=== PATIENT | male | born 1960 | race Caucasian/White ===

== ENCOUNTER 2017-05-11 03:28 | Emergency (ER) | payer SELFPAY ==
[~2017-05-11] VITALS: Ht 185.4 cm; Wt 66.5 kg
[2017-05-11 03:32] VITALS: BP 145/100
[2017-05-11] MEDS ORDERED: NAUSEA MEDS (03:37)
[2017-05-11] MEDS ORDERED: OXYC80TA25 PO (03:37)
[2017-05-11] MEDS ORDERED: OXYC30TA74 PO (03:37)
[2017-05-11] MEDS ORDERED: PANCREATIC ENZYMES (03:37)
[2017-05-11] MEDS ORDERED: PROMETHAZINE 25 MG/ML, 1ML ONE (03:46)
[2017-05-11] MEDS ORDERED: HYDROmorphone 2 MG/ML, 1ML ONE (03:46)
[2017-05-11] MEDS ORDERED: HYDROmorphone 2 MG/ML, 1ML IM ONE (04:00)
[2017-05-11] MEDS ORDERED: PROMETHAZINE 25 MG/ML, 1ML IM ONE (04:00)
== END 2017-05-11 04:48 | disposition home or self-care (01) ==
LOC: ED 04:42
DX: G89.29 Other chronic pain (principal); R10.84 Generalized abdominal pain; C25.9 Malignant neoplasm of pancreas, unspecified
CPT/HCPCS: 96372; 99284; J1170; J2550

== ENCOUNTER 2017-10-14 18:01 | Emergency (ER) | payer MEDICAID, OTHER ==
[~2017-10-14] VITALS: Ht 182.9 cm; Wt 86.0 kg
[~2017-10-14 18:01] MED LIST: NAUSEA MEDS; OXYC30TA74 PO; OXYC80TA25 PO; PANCREATIC ENZYMES
[2017-10-14] MEDS ORDERED: SODIUM CHLORIDE FLUSH 10ML SYR IVF ONE (18:30)
[2017-10-14] MEDS ORDERED: ONDANSETRON 2MG/ML, 2ML IVPush ONE (18:30)
[2017-10-14] MEDS ORDERED: HYDROmorphone 1 MG/ML, 1ML IVPush PRN (18:30)
[2017-10-14 18:47] LABS: BASOPHILS # (AUTO) 0.03 x10^3/uL (0-0.1); BASOPHILS % (AUTO) 1 % (0-1); EOSINOPHILS # (AUTO) 0.04 x10^3/uL (0-0.4); EOSINOPHILS % (AUTO) 1 % (1-7); LYMPHOCYTES # (AUTO) 1.54 x10^3/uL (1-3.4); LYMPHOCYTES % (AUTO) 28 % (22-44); MD NO; MEAN CORPUSCULAR HEMOGLOBIN 32.1 pg (27.5-34.5); MEAN CORPUSCULAR HGB CONC 32.8 g/dL (33.2-36.2); MEAN CORPUSCULAR VOLUME 97.7 fL (81-97); MEAN PLATELET VOLUME 7.9 fL (7.4-10.4); MONOCYTES # (AUTO) 0.54 x10^3/uL (0.2-0.8); MONOCYTES % (AUTO) 10 % (2-9); NEUTROPHILS # (AUTO) 3.29 x10^3/uL (1.8-6.8); NEUTROPHILS % (AUTO) 61 % (42-75); PLATELET COUNT 243 x10^3/uL (130-400); RED BLOOD COUNT 3.58 x10^6/uL (4.38-5.82); RED CELL DISTRIBUTION WIDTH 16.6 % (9.4-14.8)
[2017-10-14 18:59] LABS: ALANINE AMINOTRANSFERASE 57 U/L (12-78); ALBUMIN 2.4 g/dL (3.4-5.0); ANION GAP 7 mmol/L (5-15); CALCIUM 8.2 mg/dL (8.5-10.1); CHLORIDE 108 mmol/L (98-107)
[2017-10-14 19:01] LABS: ALKALINE PHOSPHATASE 132 U/L (45-117); BILIRUBIN,TOTAL 0.6 mg/dL (0.2-1.0)
[2017-10-14] MEDS ORDERED: HYDROmorphone 2 MG/ML, 1ML ONE (19:50)
[2017-10-14] MEDS ORDERED: ONDANSETRON 2MG/ML, 2ML ONE (19:50)
[2017-10-14] MEDS ORDERED: LIPA1CAP PO (20:44)
[2017-10-14] MEDS ORDERED: ONDA4TAB7 PO (20:44)
[2017-10-14] MEDS ORDERED: OMNIPAQUE 350 MG/ML, 100ML BOTTLE ONE (21:14)
[2017-10-14] MEDS ORDERED: LIDOCAINE 2%, 20ML ONE (22:13)
[2017-10-15 01:09] VITALS: BP 123/87
== END 2017-10-15 01:10 | disposition home or self-care (01) ==
LOC: ED 20:22
DX: C25.9 Malignant neoplasm of pancreas, unspecified (principal); G62.9 Polyneuropathy, unspecified; Z87.891 Personal history of nicotine dependence
CPT/HCPCS: 36415; 49083; 74177; 80053; 82042; 83615; 83690; 85025; 87070; 87205; 89051; 96374; 96375; 99285; J1170; J2405; J3490; Q9967